=== PATIENT | male | born 1950 | race Caucasian/White ===

== ENCOUNTER 2019-05-22 08:29 | Outpatient (CLI) | payer MEDICARE, OTHER ==
[2019-05-22 08:46] LABS: MAGNESIUM 2.2 mIU/l (1.6-2.3); eGFR (Non-African) > 60
[2019-05-22 09:28] LABS: BASOPHILS % 0.3 % (0.0-1.5); NEUTROPHILS # 7.7 # k/uL (1.4-7.7)
[2019-05-22 09:29] LABS: SEGMENTED NEUTROPHILS % 75 % (39-79); STOMATOCYTES 1+ (NEGATIVE)
== END 2019-05-22 08:34 ==
LOC: LAB 08:29
PROVIDERS: ATTEND Nurse Practitioner Family
DX: D68.2 Hereditary deficiency of other clotting factors (principal); M86.122 Other acute osteomyelitis, left humerus; J44.9 Chronic obstructive pulmonary disease, unspecified
CPT/HCPCS: 36415; 80053; 83735; 83880; 85025; 85651; 86140; P9603

== ENCOUNTER 2019-05-28 14:35 | Outpatient (CLI) | payer MEDICARE, OTHER ==
[2019-05-28 14:44] LABS: eGFR (Non-African) > 60
== END 2019-05-28 14:40 ==
LOC: LAB 14:35
PROVIDERS: ATTEND Nurse Practitioner Family
DX: D68.2 Hereditary deficiency of other clotting factors (principal); I48.91 Unspecified atrial fibrillation; M86.122 Other acute osteomyelitis, left humerus
CPT/HCPCS: 36415; 80053; 82043; 84134; P9603

== ENCOUNTER 2019-06-04 13:25 | Outpatient (CLI) | payer MEDICARE, OTHER ==
[2019-06-04 14:19] LABS: eGFR (Non-African) > 60
== END 2019-06-04 13:30 ==
LOC: LAB 13:25
PROVIDERS: ATTEND Nurse Practitioner Family
DX: I48.91 Unspecified atrial fibrillation (principal); M86.122 Other acute osteomyelitis, left humerus
CPT/HCPCS: 36415; 80053; 84466; P9603

== ENCOUNTER 2019-06-11 17:02 | Outpatient (CLI) | payer MEDICARE, OTHER ==
[2019-06-11 17:13] LABS: eGFR (Non-African) > 60
[2019-06-11 17:15] LABS: BASOPHILS % 0.3 % (0.0-1.5); NEUTROPHILS # 6.6 # k/uL (1.4-7.7)
== END 2019-06-11 17:07 ==
LOC: LAB 17:02
PROVIDERS: ATTEND Nurse Practitioner Family
DX: I48.91 Unspecified atrial fibrillation (principal); M86.122 Other acute osteomyelitis, left humerus; J44.9 Chronic obstructive pulmonary disease, unspecified; D48.2 Neoplasm of uncertain behavior of peripheral nerves and autonomic nervous system
CPT/HCPCS: 36415; 80053; 85025